=== PATIENT | female | born 1980 | race Caucasian/White ===

== ENCOUNTER 2017-07-11 22:10 | Emergency (ER) | payer OTHER ==
[~2017-07-11] VITALS: Ht 162.6 cm; Wt 87.5 kg
[2017-07-11] MEDS ORDERED: VITAMIN B COMP1 EACH PO (23:01)
[2017-07-11] MEDS ORDERED: SYNTHROID25 MCG PO (23:02)
[2017-07-11] MEDS ORDERED: PROVENTIL HFA6.7 GM INH (23:02)
== END 2017-07-11 23:15 | disposition short-term general hospital (02) ==
LOC: ER 22:10
DX: G43.909 Migraine, unspecified, not intractable, without status migrainosus (principal); E03.9 Hypothyroidism, unspecified; J45.909 Unspecified asthma, uncomplicated; F17.210 Nicotine dependence, cigarettes, uncomplicated; Z79.899 Other long term (current) drug therapy
CPT/HCPCS: J1200; J1885; J2550